=== PATIENT | female | born 1980 | race Caucasian/White ===

== ENCOUNTER → 2021-07-06 14:14 | Outpatient (CLI) | payer OTHER, SELFPAY ==
--- NOTE | ~2021-07-06 | MM_ITS ---
EXAMINATION: MM screening [facility] BI w loi HISTORY: Screening TECHNIQUE: Craniocaudal and mediolateral oblique 3-D tomosynthesis images were obtained and synthetic 2-D images were generated. CAD analysis was submitted and interpreted. COMPARISON: No prior mammogram is available for comparison at this institution. BREAST PARENCHYMAL COMPOSITION: The breasts are heterogeneously dense, which may obscure small masses . FINDINGS: There is no evidence of suspicious mass, calcification, or architectural distortion to sugg est malignancy in either breast. There has been no suspicious interval change. IMPRESSION: 1. No mammographic evidence of malignancy. 2. Recommend routine screening mammography in one year. BI-RADS Category 1: Negative Reviewed, dictated and finalized at location A. METRIST ASSISTANT
== END ==
PROVIDERS: Visit Provider Nurse Practitioner
DX: Z12.31 Encounter for screening mammogram for malignant neoplasm of breast (principal)
CPT/HCPCS: 77063; 77067

== ENCOUNTER → 2021-07-10 15:45 | Outpatient (CLI) | payer OTHER, SELFPAY ==
--- NOTE | ~2021-07-10 | US_ITS ---
EXAMINATION: US transvaginal DATE: 07/10/2021 16:13 INDICATION: Displacement of IUD. Left lower quadrant pain. Comparison:No prior studies for comparison. TECHNIQUE: Multiple transabdominal and endovaginal sonographic images of the pelvis performed. FINDINGS: The uterus measures 7.2 x 4.7 x 4.7 cm. IUD is present in the endometrium. The endometrial complex measures 7 mm. The right ovary measures 2.5 x 1.8 x 2.5 cm and the left ovary measures 2.6 x 2.1 x 2.5 cm. There ar e small follicles in each ovary. Normal doppler signal in both ovaries. There is free fluid in the pelvis. There are no abnormal masses seen on either side. IMPRESSION: 1. Unremarkable pelvic ultrasound. Reviewed, dictated and finalized at location A. NTEGRATOR FEEDER
== END ==
PROVIDERS: Visit Provider Nurse Practitioner
DX: T83.32XA Displacement of intrauterine contraceptive device, initial encounter (principal)
CPT/HCPCS: 76830

== ENCOUNTER → 2022-09-23 10:25 | Outpatient (CLI) | payer OTHER, SELFPAY ==
--- NOTE | ~2022-09-23 | MM_ITS ---
EXAMINATION: MM screening [facility] BI w loi HISTORY: Screening mammogram, family history of breast cancer in her mother. TECHNIQUE: Craniocaudal and mediolateral oblique 3-D tomosynthesis images were obtained and synthetic 2-D images were generated. CAD analysis was submitted and interpreted. COMPARISON: 07/06/2021 BREAST PARENCHYMAL COMPOSITION: The breasts are heterogeneously dense, which may obscure small masses . FINDINGS: No suspicious mass, calcification, or architectural distortion are identified in either oracio ast to suggest malignancy. There has been no suspicious interval change. IMPRESSION: 1. No mammographic evidence of malignancy. 2. Recommend routine screening mammography in one year. BI-RADS Category 1: Negative Reviewed, dictated and finalized at location A. R CONSULTANT
== END ==
PROVIDERS: PCP Nurse Practitioner; Visit Provider Nurse Practitioner
DX: Z12.31 Encounter for screening mammogram for malignant neoplasm of breast (principal)
CPT/HCPCS: 77063; 77067

== ENCOUNTER → 2023-08-29 08:11 | Outpatient (CLI) | payer OTHER, SELFPAY ==
--- NOTE | ~2023-08-29 | XR_ITS ---
EXAMINATION: XR sternum min 2V INDICATION: Other specified disorders of the bone TECHNIQUE: Two views of the sternum are obtained. COMPARISON: None available FINDINGS: No definite osseous abnormality of the sternum is identified. Bone alignment is normal. The visualized lungs are clear. No pleural effusion or pneumothorax are identified. IMPRESSION: 1. No definite osseous abnormality of the sternum. Reviewed, dictated and finalized at location B. HT INSPECTOR
== END ==
PROVIDERS: PCP Nurse Practitioner Family; Visit Provider Nurse Practitioner Family
DX: M89.8X8 Other specified disorders of bone, other site (principal)
CPT/HCPCS: 71120

== ENCOUNTER 2023-10-27 09:00 | Outpatient (RCR) | payer OTHER, SELFPAY ==
--- NOTE | 2023-09-22 16:42 | STOPEVAL1 ---
Assessment and note entered by Jeny Hutchins BRAZER REPAIR AND SALVAGE Evaluation Information Assessment Status Evaluation Reported Pain Level Pain Score 0: Self Report Assessment ST Clinical Summary VOICE EVALUATION This patient that she has a voice problem that she would describe a raspiness and/or hoarseness. 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 When told the physician order included a diagnosis of laryngopharyngeal reflux, patient indicated she was not aware of that diagnosis but that her physician did prescribe medicine for reflux in case it was contributing to her voice disorder. 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 She denied other behaviors that could contribute to voice disorder (i.e. coaching, singing in the [employer] choir, etc.) Patient completed tasks to address voice evaluation. Habitual loudness for sustained ah sound was found to be within normal range however her reading decibel level was judged to be slightly higher than expected. Normal conversational loudness in the Speech Therapy room is generally between 67-72; patient's loudness during oral reading ranged from 71-74 decibels. Her conversational loudness dropped to 64 decibels, however, possibly due to voice fatigue. Patient was instructed in the use of the Yawn-Sign technique with inhalation/exhalation prior to speaking and use of h sound in h words to reduce the stress on the vocal cords during the initiation of speech. Patient voiced and demonstrated good understanding of home program for improved voice. Patient was also shown an illustration of normal vocal cords and vocal cords affected by vocal nodules, and instructed in the use of gastroesophageal guidelines and vocal hygiene program to avoid possible interference of reflux and to reduce the stress on the vocal cords. She again voiced understanding. Patient asked about how to improve her ability to project her voice; therapist suggested a voice amplifier to be used while speaking a
--- NOTE | 2023-09-25 09:12 | OPREHPOC ---
Outpatient Therapy Plan of Care This is a Multidisciplinary Plan of Care that may contain components documented by all disciplines (PT, OT, and ST.) ST Problem 1 ST Problem #[address] Goal 1 Goal 1. Patient will demonstrate and voice understanding of normal/abnormal vocal cords/ voicing, and also gastroesophageal guidelines, vocal hygiene program, and techniques to reduce the stress/tension on the vocal cords. Target Visit [address] Problem #[address] Goal 1 Goal 1. Patient will demonstrate use of yawn-sigh technique with h words, phrases, and sentences 90% of the time in structured tasks. 2. Patient will demonstrate use of changing pitch in words, phrases, and sentences with improved vocal quality 80% of the time. 3. Patient will report at least mild improvement in vocal quality by time of discharge. Target Visit 4
--- NOTE | 2023-10-02 09:37 | PCSTNOTE ---
Patient not able to schedule week of 09/28 due to being out of town at a conference. Will resume one time weekly next week, week of 10/06/23.
--- NOTE | 2023-10-09 16:05 | PCSTNOTE ---
Patient called to cancel today's session 1/2 hour later than scheduled due to thinking her appointment was at 4:00 rather than 3:30. She cancelled anyway as she had to take her dog to the vet for emergency treatment.
--- NOTE | 2023-10-27 10:24 | STOPDC ---
Assessment and note entered by Jeny Hutchins LANDSCAPE PHOTOGRAPHER Evaluation Information Assessment Status Discharge Reported Pain Level Pain Score 0: Self Report Assessment ST Clinical Summary DISCHARGE SUMMARY AND TREATMENT SUMMARY Today the patient was seen for her fourth Speech Therapy session addressing vocal hoarseness. She was instructed in the use of vocal hygiene program , gastroesophageal reflux guidelines, use of the yawn-sigh technique which was not helpful as patient could not incorporate it into her daily routine, and use of changing pitch (speaking in higher pitch than her habitual pitch). She responded as follows to her voice improvement program: Patient reports that of the vocal hygiene instructions offered, she has increased water intake, cut down on soda consumption, switched from warm to cold coffee (unsure if this makes a difference but she felt it helped), drank coffee only during the week and cut down on weekends consumption, stopped trying to speak over people and loud environmental noises, had her students remind her that she was increasing her vocal loudness. She also purchased a voice amplifier for school and stated that although it is awkward to use, it has been useful. Her students have been responsive to it and they remind her when she needs to turn the volume up to hear her better so that she would not naturally try to speak louder. Patient also stated that she has been so satisfied with her improvement that she only needs to use a higher pitch toward the end of the day when she is more fatigued. Patient reports she has also been following GERD guidelines by taking Omeprazole as prescribed by physician, and has been avoiding most foods/liquids that can contribute to reflux except for spicy foods, which she reports she cannot give up. At the same time, she reported that she tries to avoid snacking after six to seven pm. The patient was offered several activities that were addressed in her first session: Sustain ah sound: currently, 8 seconds, average over two trials (initially 7 seconds), decibel loudness: 75 decibels (initially
== END 2023-10-30 10:00 | disposition home or self-care (01) ==
LOC: ANHST 09:00
PROVIDERS: PCP Nurse Practitioner Family; Visit Provider Otolaryngology
DX: K21.9 Gastro-esophageal reflux disease without esophagitis (principal)
CPT/HCPCS: 92507; 92524; 99199

== ENCOUNTER 2023-12-13 08:23 | Outpatient (CLI) | payer OTHER, SELFPAY ==
--- NOTE | ~2023-12-13 | MM_ITS ---
EXAMINATION: MM screening [facility] BI w loi HISTORY: Screening mammogram, family history of breast cancer in her mother. TECHNIQUE: Craniocaudal and mediolateral oblique 3-D tomosynthesis images were obtained and synthetic 2-D images were generated. CAD analysis was submitted and interpreted. COMPARISON: 09/23/2022, 07/06/2021 BREAST PARENCHYMAL COMPOSITION:Dense: The breasts are extremely dense, which lowers the sensitivity o f mammography. FINDINGS: No suspicious mass, calcification, or architectural distortion are identified in either oracio ast to suggest malignancy. There has been no suspicious interval change. IMPRESSION: No mammographic evidence of malignancy. Recommend routine screening mammography in one year. BI-RADS Category 1: Negative Reviewed, dictated and finalized at location .
== END 2023-12-13 08:24 ==
LOC: MICIMG 08:23
PROVIDERS: PCP Nurse Practitioner; Visit Provider Nurse Practitioner
DX: Z12.31 Encounter for screening mammogram for malignant neoplasm of breast (principal)
CPT/HCPCS: 77063; 77067

== ENCOUNTER 2024-07-09 08:59 | Emergency (ER) | payer OTHER, SELFPAY ==
[2024-07-09 09:03] VITALS: BP 130/70; PULSE 66; RESP 18; TEMP 36.5; O2SAT 100
[2024-07-09 09:20] LABS: Basophils Percent Auto 0.4 % (0.2-1.2); Eosinophils Absolute Auto 0.1 K/mm3 (0-0.3); Eosinophils Percent Auto 0.9 % (0-4.4); Hematocrit 41.2 % (37.0-47.0); Hemoglobin 14.2 g/dL (12.0-15.0); Immature Granulocyte Absolute 0.01 K/mm3 (0.00-0.031); Immature Granulocyte Percent A 0.2 % (0-0.5); Lymphocytes Absolute Auto 1.64 K/mm3 (0.9-3.2); Mean Corpuscular HGB Conc 34.5 g/dl (32-36); Mean Corpuscular Volume 86.9 fl (80-100); Mean Platelet Volume 8.5 fl (7.4-10.4); Monocytes Absolute Auto 0.3 K/mm3 (0.1-0.6); Neutrophils Absolute Auto 3.4 K/mm3 (1.3-6.7); Neutrophils Percent Auto 62.5 % (45.5-73.1); Platelet Count Result 318 k/mm3 (150-375); Red Blood Count 4.74 M/mm3 (4.2-5.4); Red Cell Distribution Width 12.1 % (11.5-14.5); White Blood Count 5.5 K/mm3 (4.5-10.0)
[2024-07-09 09:23] LABS: BEDSIDEPREGUCG Negative (Negative)
[2024-07-09 09:30] LABS: Alanine Aminotransferase 20 U/L (6-35); Albumin Level 4.3 g/dL (3.5-5.1); Alkaline Phosphatase 69 U/L (38-126); Anion Gap 3 mmol/L (4-12); Aspartate Amino Transferase 27 U/L (14-36); Bilirubin,Total 0.4 mg/dL (0.2-1.3); Blood Urea Nitrogen 14 mg/dL (7-17); Calcium 9.3 mg/dL (8.4-10.2); Carbon Dioxide 26 mmol/L (22-30); Chloride 106 mmol/L (98-107); Estimated CRCL calculation 86 ml/min; Estimated Glomerular Filt Rate > 60; Glucose 84 mg/dL (65-110); Lipase 60 U/L (23-300); Potassium 4.3 mmol/L (3.4-5.0); Sodium 135 mmol/L (137-145)
[2024-07-09 09:34] LABS: Add Urine Microscopic? NO; Appearance Urine Clear (Clear); Bilirubin Urine Negative (Negative); Blood Urine Negative (Negative); Color Urine Yellow (Yellow); Glucose Urine UA Negative (Negative); Ketones Urine Negative (Negative); Leukocyte Esterase Ur Negative LEU/UL (Negative); Nitrate Urine Negative (Negative); Protein Urine Negative (Negative); Specific Grav Ur 1.013 (1.001-1.035); Urobilinogen Urine 0.2 mg/dL (<2.0)
--- NOTE | 2024-07-09 09:35 | ED_ITS ---
HPI - Abdominal Pain General Chief Complaint: Abdominal Pain Stated Complaint: abd pain Time Seen by Provider: 07/09/24 09:01 Source: patient Mode of arrival: ambulatory Limitations: no limitations History of Present Illness HPI narrative: Patient is a 44 y/o female who presents to the ED with c/o upper abdominal pain. Patient reports patient initially felt fine this morning when she 1st woke up, but developed pain throughout her upper abdomen she shortly afterwards. She attempted going to work, but complained of worsening pain. Attempted to drink a fiber supplement but states pain continued to worsen. She then prompted here. She does report pain is improved currently. She does not take anything further for the pain. She does report having loose stools this morning, as well as nausea with dry heaving. Denies vomiting. Denies fevers, CP, SOB. Related Data Home Medications ?Medication ?Instructions ?Recorded ?Confirmed ?Last Taken ?Type valacyclovir 500 mg tablet mg PO 06/08/24 06/08/24 Unknown History Allergies Allergy/AdvReac Type Severity Reaction Status Date / Time Sulfa (Sulfonamide Allergy Mild Unknown Verified 07/09/24 09:56 Antibiotics) Review of Systems 2 Review of Systems: All systems reviewed & are unremarkable except as noted in HPI. All systems reviewed & are unremarkable except as noted in HPI and below PMFSH Social History Social History Smoking status: Current some day smoker Tobacco type: cigarettes Alcohol intake: current Substance use: current Substance use type: marijuana Do You Feel Safe in your Home?: Yes Lack of Transportation: No Lack of Food: Never True Current Housing: I Have Housing Concerned About Future Housing: No Difficulty Paying Gas/Electric Bills: No Difficulty Paying for Meds: No Currently Unemployed: No Education: Master's Degree or Higher Difficulty w/ Childcare or Family Care: No Exam 2 Narrative: GENERAL: Well appearing, obese with BMI of 30.6, non-toxic, in no acute distress. HEAD: Normocephalic, atraumatic. RESPIRATORY: Airway patent, respirations nonlabored. Clear to auscultation bilaterally, no rales, rhonchi, wheezing. CARDIOVASCULAR: Regular rate and rhythm ABDOMINAL: Soft, diffuse tenderness throughout upper abdomen, left upper quadrant, epigastric region, nondistended. Normoactive BS. MUSCULOSKELETAL: Moves all extremities. No gross deformities. SKIN: Warm, dry, normal color. NEURO: A&O X3. Speech clear. PSYCHIATRIC: Appropriate mood and affect. Normal interaction. Course Vital Signs Vital signs: Vital Signs Temperature 97.7 F 07/09/24 09:03 Pulse Rate 66 07/09/24 09:03 Respiratory Rate 18 07/09/24 09:03 Blood Pressure 130/70 07/09/24 09:03 Pulse Oximetry 100 07/09/24 09:03 Oxygen Delivery Room Air 07/09/24 09:03 Temperature 97.7 F 07/09/24 09:03 Pulse Rate 65 07/09/24 10:00 Respiratory Rate 18 07/09/24 10:00 Blood Pressure 130/70 07/09/24 10:00 Pulse Oximetry 100 07/09/24 10:00 Oxygen Delivery Room Air 07/09/24 09:03 MDM - Abdominal Pain MDM Narrative Medical decision making narrative: patient presented to ED with upper abdominal pain that began this morning, improved currently. Reported having loose stools and nausea with dry heaving. Vital signs are stable upon arrival. Patient is in no acute distress. Laboratory studies are unremarkable. No leukocytosis or anemia. Stable electrolytes. Stable kidney function. Normal LFTs and lipase. Urinalysis is clear. Urine is negative. EKG is nonischemic. Suspect gastritis picture versus GERD, gas pains, gastroenteritis. Given pepcid and GI cocktail. On reeval, she is feeling improved. States pain is minimal at this time. Discussed obtaining a CT scan of the abdomen/ pelvis, however patient declined, does not feel she was imaging at this time. She feels ready for discharge home. Will prescribe omeprazole and Bentyl for home use. Given strict return precautions. She agrees with plan, discharged in stable condition. Medical Records Attestation: I reviewed the patient's medical records. Lab Data Attestation: I reviewed the patient's lab results. 07/09/24 09:14 07/09/24 09:14 Labs: Lab Results 07/09/24 07/09/24 07/09/24 Range/Units 09:14 09:20 09:22 WBC 5.5 (4.5-10.0) K/mm3 RBC 4.74 (4.2-5.4) M/mm3 Hgb 14.2 (12.0-15.0) g/dL Hct 41.2 (37.0-47.0) % MCV 86.9 (80-100) fl MCH 30.0 (26-34) pg MCHC 34.5 (32-36) g/dl RDW 12.1 (11.5-14.5) % Plt Count 318 (150-375) k/mm3 MPV 8.5 (7.4-10.4) fl Immature Gran % (Auto) 0.2 (0-0.5) % Neut % (Auto) 62.5 (45.5-73.1) % Lymph % (Auto) 30.0 (18.3-44.2) % [place] % (Auto) 6.0 (2.6-8.5) % Eos % (Auto) 0.9 (0-4.4) % Baso % (Auto) 0.4 (0.2-1.2) % Lymph # (Auto) 1.64 (0.9-3.2) K/mm3 [place] # (Auto) 0.3 (0.1-0.6) K/mm3 Eos # (Auto) 0.1 (0-0.3) K/mm3 Baso # (Auto) 0.0 (0.0-0.1) K/mm3 Abs Immat Gran (auto) 0.01 (0.00-0.031) K/mm3 Absolute Neuts (auto) 3.4 (1.3-6.7) K/mm3 Absolute Nucleated RBC 0.000 (0.0-0.012) K/mm3 Nucleated RBC % 0.0 (0.0-0.2) % Sodium 135 L (137-145) mmol/L Potassium 4.3 (3.4-5.0) mmol/L Chloride 106 (98-107) mmol/L Carbon Dioxide 26 (22-30) mmol/L Anion Gap 3 L (4-12) mmol/L BUN 14 (7-17) mg/dL Creatinine 0.70 (0.7-1.0) mg/dL Estim Creat Clear Calc 86 ml/min Estimated GFR > 60 (59 - ) Glucose 84 (65-110) mg/dL Calcium 9.3 (8.4-10.2) mg/dL Total Bilirubin 0.4 (0.2-1.3) mg/dL AST 27 (14-36) U/L ALT 20 (6-35) U/L Alkaline Phosphatase 69 (38-126) U/L Total Protein 7.0 (6.3-8.2) g/dL Albumin 4.3 (3.5-5.1) g/dL Lipase 60 (23-300) U/L Urine Color Yellow (Yellow) Urine Appearance Clear (Clear) Urine pH 8.0 (5.0-9.0) Ur Specific [place] 1.013 (1.001-1.035) Urine Protein Negative (Negative) mg/dL Urine Glucose (UA) Negative (Negative) mg/dL Urine Ketones Negative (Negative) mg/dL Ur Blood (Man) Negative (Negative) Urine Nitrate Negative (Negative) Urine Bilirubin Negative (Negative) Urine Urobilinogen 0.2 (<2.0) mg/dL Leukocyte Esterase Rfl Negative (Negative) RAYMOND/UL POC Urine HCG, Qual Negative (Negative) ECG Data EKG #1: Attestation: I personally reviewed and interpreted this ECG as follows: ECG completion date: 07/09/24 ECG completion time: 09:57 normal rate (71), sinus rhythm and no ST changes Discharge Plan Discharge Clinical Impression: Acute upper abdominal pain Patient Disposition: Home, Self-Care Condition: Stable Instructions: Antibiotic Form, Gastritis (ED), Diet for Stomach Ulcers and Gastritis (ED), Gastroenteritis (ED) Additional Instructions: Recommend Tylenol/ Bentyl as needed for further abdominal discomfort. Recommend trialing omeprazole daily for acid reflux/stomach irritation. You may also take pepcid. Increase fluid intake. Recommend electrolyte rich fluids, gatorade, pedialyte, body armour. Recommend clear liquids or bland diet until symptoms improve, such as bananas, rice, applesauce, toast, or crackers. Follow up with your primary care doctor for further evaluation. Return to the ED if you experience worsening or severe symptoms, unable to keep down food or drink, severe pain, fevers, rectal bleeding, vomiting blood, or any other symptoms of concern. Patient Language: [place] Prescriptions: New omeprazole 10 mg capsule,delayed release(DR/EC) 10 mg PO DAILY Qty: 30 0RF dicyclomine 20 mg tablet 20 mg PO TID PRN (Reason: Abdominal Discomfort) Qty: 15 0RF No Action valacyclovir 500 mg tablet PO fluoxetine 40 mg capsule 40 mg PO ONCE Qty: 90 0RF levothyroxine [Synthroid] 50 mcg tablet 50 mcg PO DAILY Qty: 90 0RF spironolactone 100 mg tablet 100 mg PO DAILY Qty: 90 0RF Rx Instructions: derm dextroamphetamine-amphetamine 20 mg tablet 20 mg PO BID Qty: 60 0RF Follow-up/Referrals: Ming Palafox MD [Primary Care Provider] - Time of Disposition: 10:49
--- NOTE | 2024-07-09 09:44 | ECG_ITS ---
Test Date: 2024-07-09 09:57:39 Measurements Intervals [place] Rate: 71 P: 57 IA: 144 QRS: 41 QRSD: 86 T: 37 QT: 400 QTc: 437 Interpretive Statements SINUS RHYTHM No previous ECG available for comparison Electronically Signed On 07-09-2024 12:22:36 RESERVE OFFICER by Chelsi Jacobsen M.D.
[2024-07-09] MEDS: BELLADONNA ALK/PHENOB ELIX 10 ML, MAG HYDROX/ALUMINUM HYD/SIMETH 30 ML, LIDOCAINE 2% VI... PO (09:57)
[2024-07-09] MEDS: FAMOTIDINE 20 MG/2 ML VIAL IV PUSH (09:57)
[2024-07-09 10:00] VITALS: BP 130/70; PULSE 65; RESP 18; O2SAT 100
== END 2024-07-09 10:55 | disposition home or self-care (01) ==
PROVIDERS: Emergency Provider Physician Assistant; PCP Family Medicine
DX: R10.10 Upper abdominal pain, unspecified (principal); F17.210 Nicotine dependence, cigarettes, uncomplicated
CPT/HCPCS: 36415; 80053; 81003; 81025; 83690; 85025; 93005; 96374; 99284; A9270

== ENCOUNTER 2025-01-03 15:12 | Outpatient (CLI) | payer OTHER, SELFPAY ==
--- NOTE | ~2025-01-03 | MM_ITS ---
EXAMINATION: MM screening [facility] BI w loi HISTORY: Screening TECHNIQUE: Craniocaudal and mediolateral oblique 3-D tomosynthesis images were obtained and synthetic 2-D images were generated. CAD analysis was submitted and interpreted. COMPARISON: Comparison to multiple prior studies sequentially, with oldest reviewed study dated 06/20. BREAST PARENCHYMAL COMPOSITION: Dense: The breasts are extremely dense, which lowers the sensitivity of mammography. FINDINGS: There is a developing cluster of pleomorphic calcifications in the upper outer quadrant of the right breast, anterior third. The left breast is stable without evidence for malignancy. IMPRESSION: 1. Developing cluster of pleomorphic calcifications of the right breast. 2. Magnification views are recommended. BI-RADS Category 0: Incomplete: Needs additional imaging evaluation. Reviewed, dictated and finalized at location A.
== END 2025-01-03 15:13 | disposition home or self-care (01) ==
LOC: MICIMG 15:13
PROVIDERS: PCP Family Medicine; Visit Provider Obstetrics & Gynecology Gynecology
DX: Z12.31 Encounter for screening mammogram for malignant neoplasm of breast (principal); R92.8 Other abnormal and inconclusive findings on diagnostic imaging of breast
CPT/HCPCS: 77063; 77067

== ENCOUNTER 2025-01-26 08:48 | Outpatient (CLI) | payer OTHER, SELFPAY ==
--- NOTE | ~2025-01-26 | MMUS_ITS ---
EXAMINATION: MM diagnostic carmen RT w loi, US breast RT complete HISTORY: Follow-up right breast calcifications TECHNIQUE: Additional 3-D tomosynthesis images of the right breast were performed and synthetic 2-D i mages were generated. CAD analysis was submitted and interpreted. High resolution complete right samantha st ultrasound was performed. COMPARISON: Comparison to multiple prior studies sequentially, with oldest reviewed study dated 06/20. BREAST PARENCHYMAL COMPOSITION: Dense: The breasts are extremely dense, which lowers the sensitivity of mammography. FINDINGS: MAMMOGRAPHIC FINDINGS: There is a cluster of calcifications anteriorly in the upper outer quadrant of the right breast which layer on medial lateral spot MLO views, consistent with benign fibrocystic calcifications. There are no suspicious masses or architectural distortion. ULTRASOUND: Complete US of all 4 quadrants of the right breast/s and retroareolar region was reviewed. At 5:00, 1 cm from the nipple there is an oval hypoechoic 5 mm mass with low level internal echoes, parallel or ientation, no posterior features and no internal vascularity, likely benign. At 8:00, 5 cm from the n ipple there is an oval hypoechoic mass measuring 6 x 4 x 4 mm with marginal vascularity and no signif icant posterior features, likely benign. IMPRESSION: 1. Probable benign right breast masses of the right breast. Benign right breast calcifications. 2. Recommend 6 month follow-up Limited right breast ultrasound. BI-RADS category 3, probably benign findings. Reviewed, dictated and finalized at location A. IMPRESSION: 1. Probable benign right breast masses of the right breast. Benign right breast calcifications. 2. Recommend 6 month follow-up Limited right breast ultrasound. BI-RADS category 3, probably benign findings.
== END 2025-01-26 08:49 | disposition home or self-care (01) ==
LOC: MICIMG 08:49
PROVIDERS: PCP Family Medicine; Visit Provider Obstetrics & Gynecology Gynecology
DX: R92.8 Other abnormal and inconclusive findings on diagnostic imaging of breast (principal)
CPT/HCPCS: 76641; 77061; 77065; G0279

== ENCOUNTER 2025-07-19 11:20 | Outpatient (CLI) | payer OTHER, SELFPAY ==
--- NOTE | ~2025-07-19 | US_ITS ---
EXAMINATION: US transvaginal INDICATION: Displacement of IUD Comparison:No prior studies for comparison. TECHNIQUE: Multiple transabdominal and endovaginal sonographic images of the pelvis performed. FINDINGS: The uterus measures 9.5 x 4.6 x 5.8 cm. IUD is present within the endometrium. The endometrial complex measures 6 mm. The right ovary measures 2.7 x 2 x 3.1 cm and the left ovary measures 3.6 x 2.8 x 3.4 cm. There is a left ovarian simple cyst measuring 2.7 cm. There are small follicles in each ovary. Normal doppler signal in both ovaries. There is no free fluid in the pelvis. There are no abnormal masses seen on either side. IMPRESSION: 1. Left ovarian cyst measuring 2.7 cm. 2: IUD in expected position within the endometrium. Reviewed, dictated and finalized at location O. SMISSION REPAIRER
== END 2025-07-19 11:21 | disposition home or self-care (01) ==
LOC: MICIMG 11:21
DX: N83.202 Unspecified ovarian cyst, left side (principal); Z30.431 Encounter for routine checking of intrauterine contraceptive device; T83.32XA Displacement of intrauterine contraceptive device, initial encounter
CPT/HCPCS: 76830